=== PATIENT | female | born 1975 | race Caucasian/White ===

== ENCOUNTER 2019-12-16 09:16 | Outpatient (CLI) | payer OTHER, SELFPAY ==
--- NOTE | 2019-12-18 12:12 | WPDHOLTEREM ---
Holter/Event Monitor Holter/Event Monitor Date of procedure: 12/16/19 Procedure Type: 24 hour holter monitor Indications: Palpitations Conclusion: 1. 24 hour holter monitor on 12/16/19. 2. Underlying rhythm is sinus rhythm. HR range 42-182 bpm; average HR 79 bpm. 3. There are 5 premature supraventricular complexes. No supraventricular tachycardia. 4. There are 13 premature ventricular complexes. No ventricular tachycardia. 5. No sinoatrial or atrioventricular blocks. No significant pauses greater than 2 seconds. 6. Patient reports climbed stairs which demonstrate 107-130 bpm.
== END 2019-12-16 09:17 | disposition home or self-care (01) ==
PROVIDERS: PCP Physician Assistant; Visit Provider Physician Assistant
DX: R00.2 Palpitations (principal)
CPT/HCPCS: 93225; 93226

== ENCOUNTER → 2023-04-24 15:59 | Outpatient (CLI) | payer OTHER, BC, SELFPAY ==
--- NOTE | ~2023-04-24 | MM_ITS ---
EXAMINATION: MM screening harvey BI w joe HISTORY: Screening mammogram TECHNIQUE: Craniocaudal and mediolateral oblique 3-D tomosynthesis images were obtained and synthetic 2-D images were generated. CAD analysis was submitted and interpreted. COMPARISON: 05/20/2018 BREAST PARENCHYMAL COMPOSITION: There are scattered areas of fibroglandular density. FINDINGS: No suspicious mass, calcification, or architectural distortion are identified in either natan ast to suggest malignancy. There has been no suspicious interval change. IMPRESSION: 1. No mammographic evidence of malignancy. 2. Recommend routine screening mammography in one year. 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
== END ==
PROVIDERS: PCP Physician Assistant; Visit Provider Obstetrics & Gynecology
DX: Z12.31 Encounter for screening mammogram for malignant neoplasm of breast (principal)
CPT/HCPCS: 77063; 77067

== ENCOUNTER 2024-06-23 09:56 | Emergency (ER) | payer OTHER, BC, SELFPAY ==
[2024-06-23 09:58] VITALS: BP 133/94; PULSE 86; RESP 16; TEMP 36.6; O2SAT 100
[2024-06-23 10:36] LABS: Basophils Absolute Auto 0.1 K/mm3 (0.0-0.1); Basophils Percent Auto 0.5 % (0.2-1.2); Eosinophils Absolute Auto 0.2 K/mm3 (0-0.3); Eosinophils Percent Auto 1.2 % (0-4.4); Hematocrit 56.9 % (37.0-47.0); Hemoglobin 17.8 g/dL (12.0-15.0); Immature Granulocyte Absolute 0.04 K/mm3 (0.00-0.031); Immature Granulocyte Percent A 0.3 % (0-0.5); Lymphocytes Absolute Auto 1.51 K/mm3 (0.9-3.2); Lymphocytes Percent Auto 11.7 % (18.3-44.2); Mean Corpuscular HGB Conc 31.3 g/dl (32-36); Mean Corpuscular Volume 102.3 fl (80-100); Monocytes Absolute Auto 0.8 K/mm3 (0.1-0.6); Monocytes Percent Auto 6.4 % (2.6-8.5); Neutrophils Absolute Auto 10.3 K/mm3 (1.3-6.7); Neutrophils Percent Auto 79.9 % (45.5-73.1); Platelet Count Result 273 k/mm3 (150-375); Red Blood Count 5.56 M/mm3 (4.2-5.4); Red Cell Distribution Width 13.5 % (11.5-14.5); White Blood Count 12.9 K/mm3 (4.5-10.0)
--- OUTSIDE RECORDS SUMMARY | 2024-06-23 10:40 | XMS_ITS | Clinical Summary ---
Author Organization [facility] Address [facility] [place] [address] Care Team Providers Care Briquette Molder Name Role Phone Ganga Potter PA-C Primary Care Provider [phone] Allergies No known active allergies Medications albuterol sulfate HFA 108 (90 Base) MCG/ACT inhaler Inhale 2 puffs into the lungs every 6 (six) hours as needed for Shortness of breath. 6.7 g Active Social History Tobacco Use Types Packs/Day Years Used Date Smoking Tobacco: Never Assessed Comments Unknown Sex and Gender Information Value Date Recorded Sex Assigned at Not on file Legal Sex Female 5:41 PM CDT Gender Identity Not on file Sexual Orientation Not on file Last Filed Vital Signs Vital Sign Reading Time Taken Comments Blood Pressure 157/87 12/26/2020 4:25 PM CDT Pulse 63 12/26/2020 4:25 PM CDT Temperature 36.9 C (98.5 F) 12/26/2020 4:25 PM CDT Respiratory Rate 18 12/26/2020 4:25 PM CDT Oxygen Saturation 99% 12/26/2020 4:25 PM CDT Inhaled Oxygen Concentration - - Weight 91.2 kg (201 lb) 12/26/2020 4:25 PM CDT Height 162.6 cm (5' 4 ) 12/26/2020 4:25 PM CDT Body Mass Index 34.5 12/26/2020 4:25 PM CDT Plan of Treatment Health Maintenance Due Date Last Done Comments Cervical Cancer Screening Ramon baez Smear (Age 30 to 64) Every 3 Years 1976 Colorectal Cancer Screening Colonoscopy (10 Years) 1976 Annual Physical 07/10/1979 Hepatitis C 1994 DTaP, Tdap and Td Vaccines ( 1 - Tdap) 07/10/1995 Hepatitis B Vaccines (1 of 3 - 19+ 3-dose series) 07/10/1995 Cervical Cancer Screening Ramon baez with HPV Testing (Age 30 to 64) Every 5 Years 2006 Cervical Cancer Screening with HPV 2006 Mammogram Screening 2016 COVID-19 Vaccine ( - 2023-2 5 season) 2023 Meningococcal B Vaccine Aged Out No l onger eligible based on patient's age to complete this topic Meningococcal Vaccine Aged Out No yari catia eligible based on patient's age to complete this topic Pneumococcal Vaccine: Pediat rics (0 to 5 Years) and At-Risk Patients (6 to 49 Years) Aged Out No longer eligible b ased on patient's age to complete this topic RSV Immunizations Under 20 Months Aged Out No longer eligible based on patient's age to complete this topic Insurance Care Teams Briquette Molder Relationship Specialty Start Date End Date Ganga Potter PA-C [address] [facility] [address] [place] [address] PCP - General PHYSICIAN STATION EXAMINER 12/26/20
[2024-06-23 10:43] LABS: Alanine Aminotransferase 29 U/L (6-35); Albumin Level 5.6 g/dL (3.5-5.1); Alkaline Phosphatase 89 U/L (38-126); Anion Gap 18 mmol/L (4-12); Aspartate Amino Transferase 22 U/L (14-36); Bilirubin,Total 0.6 mg/dL (0.2-1.3); Blood Urea Nitrogen 17 mg/dL (7-17); Carbon Dioxide 17 mmol/L (22-30); Chloride 104 mmol/L (98-107); Estimated CRCL calculation 85 ml/min; Estimated Glomerular Filt Rate > 60; Glucose 131 mg/dL (65-110); Lipase 98 U/L (23-300); Potassium 4.2 mmol/L (3.4-5.0); Sodium 139 mmol/L (137-145)
[2024-06-23 10:46] VITALS: O2SAT 99
--- NOTE | 2024-06-23 10:49 | PC.NURSE ---
pt unable to urinate at this time due to being very dehydrated
--- NOTE | 2024-06-23 11:08 | PC.NURSE ---
patient was asked to provide a urine sample, she states that she can't pee right now because she's dehydrated. patient denies a catheter because she has sensitive skin and is very careful about what happens downstairs
[2024-06-23] MEDS: LACTATED RINGERS 1,000 ML 999 ML IV CONT ×2 (11:53→13:08)
--- NOTE | 2024-06-23 12:04 | PC.NURSE ---
Lab called to add on ordered magnesium.
[2024-06-23 12:30] LABS: Magnesium 2.1 mg/dL (1.6-2.3)
--- NOTE | 2024-06-23 12:36 | ED_ITS ---
HPI - Nausea/Vomiting/Diarrhea General Chief complaint: Nausea/Vomiting/Diarrhea Stated complaint: severe dehydration Time Seen by Provider: 06/23/24 11:39 History of Present Illness HPI Narrative: 48-year-old female presents emergency department for diarrhea that started yesterday. Patient states she has had several bouts of watery diarrhea since last night. She had 1 episode of vomiting upon arrival to the ED. She is reporting mild epigastric discomfort after vomiting but otherwise no abdominal pain. Denies fever, dysuria or hematuria, recent travel or antibiotic use. No recent healthcare exposure. Patient states she feels very dehydrated and wants IV fluids. Related Data Home Medications ?Medication ?Instructions ?Recorded ?Confirmed ?Last Taken ?Type apple cider vinegar 500 mg tablet mg PO 12/08/19 03/24/23 Unknown History biotin 5,000 mcg disintegrating 10,000 mcg PO DAILY 12/08/19 03/24/23 Unknown History tablet diphenhydramine HCl 25 mg tablet 25 mg PO TID PRN 12/08/19 03/24/23 Unknown History (Benadryl Allergy) elderberry fruit 200 mg capsule mg PO 12/08/19 03/24/23 Unknown History krill idn-udnro-3-dha-epa 300 cap PO 12/08/19 03/24/23 Unknown History mg-90 mg (27 mg-45 mg) capsule loratadine 10 mg tablet (Claritin) 10 mg PO DAILY 12/08/19 03/24/23 Unknown History lysine 1,000 mg tablet 1,000 mg PO DAILY 12/08/19 03/24/23 Unknown History Allergies Allergy/AdvReac Type Severity Reaction Status Date / Time No Known Allergies Allergy Verified 06/23/24 10:03 Review of Systems 2 Review of Systems: All systems reviewed & are unremarkable except as noted in HPI and below PMFSH Surgical History Surgical History History of cervical biopsy Family History Family History Father No problems noted. Mother Hypertension Social History Social History Smoking status: Never smoker Lack of Transportation: No Lack of Food: Never True Current Housing: I Have Housing Concerned About Future Housing: No Difficulty Paying Gas/Electric Bills: No Difficulty Paying for Meds: No Currently Unemployed: No Education: Associate Degree Difficulty w/ Childcare or Family Care: No Exam 2 Narrative: GENERAL: Well-appearing, well-nourished, and in no acute distress. HEAD: Normocephalic, atraumatic. EYES: EOMI. ENT: Nares clear, no rhinorrhea or epistaxis. Mucous membranes moist. NECK: Supple. CHEST: Clear to auscultation. No respiratory distress. HEART: Regular rate and rhythm. No murmur heard. Normal peripheral pulses. ABDOMEN: Soft, nontender, nondistended, normal active bowel sounds. No rebound, guarding or rigidity. No CVA tenderness EXTREMITIES: Normal range of motion. No edema. SKIN: Warm, dry, no rash. NEURO: No focal deficits. Alert and oriented x3 Course Vital Signs Vital signs: Vital Signs Temperature 97.8 F 06/23/24 09:58 Pulse Rate 86 06/23/24 09:58 Respiratory Rate 16 06/23/24 09:58 Blood Pressure 133/94 H 06/23/24 09:58 Pulse Oximetry 100 06/23/24 09:58 Temperature 97.8 F 06/23/24 09:58 Pulse Rate 86 06/23/24 09:58 Respiratory Rate 16 06/23/24 09:58 Blood Pressure 133/94 H 06/23/24 09:58 Pulse Oximetry 99 06/23/24 10:46 MDM - Nausea/Vomiting/Diarrhea MDM Narrative Medical decision making narrative: 48-year-old female presents to the emergency department for diarrhea that started yesterday evening 1 episode of vomiting. Vitals are stable. Patient is afebrile and nontoxic appearing. Abdomen is soft and nontender. Lab work shows leukocytosis of 12.9 and hemoglobin is 17.8 which is likely secondary to dehydration. Chemistries also consistent with dehydration with a bicarb of 17 and anion gap of 18. Lipase is within normal limits. Magnesium within normal limits. is negative. UA without infection or ketones. Patient updated on results. She received 2 L of fluids with significant improvement. She politely declined Pepcid and antiemetics. She is tolerating p.o. intake. She did have a couple episodes of diarrhea in the ED, therefore stool cultures and C diff obtained. Discussed supportive care with increase oral intake and follow-up with PCP. I offered to send antiemetics to the pharmacy however patient declined. Discussed strict ED return precautions. She and her are agreeable to plan verbalized understanding. Discharged in stable condition. Lab Data 06/23/24 10:27 06/23/24 10:27 Labs: Lab Results 06/23/24 06/23/24 06/23/24 Range/Units 10:27 13:17 13:58 WBC 12.9 H (4.5-10.0) K/mm3 RBC 5.56 H (4.2-5.4) M/mm3 Hgb 17.8 H (12.0-15.0) g/dL Hct 56.9 H (37.0-47.0) % MCV 102.3 H (80-100) fl MCH 32.0 (26-34) pg MCHC 31.3 L (32-36) g/dl RDW 13.5 (11.5-14.5) % Plt Count 273 (150-375) k/mm3 MPV 13.0 H (7.4-10.4) fl Immature Gran % (Auto) 0.3 (0-0.5) % Neut % (Auto) 79.9 H (45.5-73.1) % Lymph % (Auto) 11.7 L (18.3-44.2) % [place] % (Auto) 6.4 (2.6-8.5) % Eos % (Auto) 1.2 (0-4.4) % Baso % (Auto) 0.5 (0.2-1.2) % Lymph # (Auto) 1.51 (0.9-3.2) K/mm3 [place] # (Auto) 0.8 H (0.1-0.6) K/mm3 Eos # (Auto) 0.2 (0-0.3) K/mm3 Baso # (Auto) 0.1 (0.0-0.1) K/mm3 Abs Immat Gran (auto) 0.04 H (0.00-0.031) K/mm3 Absolute Neuts (auto) 10.3 H (1.3-6.7) K/mm3 Absolute Nucleated RBC 0.000 (0.0-0.012) K/mm3 Nucleated RBC % 0.0 (0.0-0.2) % % Immature Plt Fraction 13.0 H (0.9-11.2) % Sodium 139 (137-145) mmol/L Potassium 4.2 (3.4-5.0) mmol/L Chloride 104 (98-107) mmol/L Carbon Dioxide 17 L (22-30) mmol/L Anion Gap 18 H (4-12) mmol/L BUN 17 (7-17) mg/dL Creatinine 0.78 (0.7-1.0) mg/dL Estim Creat Clear Calc 85 ml/min Estimated GFR > 60 (59 - ) Glucose 131 H (65-110) mg/dL Calcium 10.0 (8.4-10.2) mg/dL Magnesium 2.1 (1.6-2.3) mg/dL Total Bilirubin 0.6 (0.2-1.3) mg/dL AST 22 (14-36) U/L ALT 29 (6-35) U/L Alkaline Phosphatase 89 (38-126) U/L Total Protein 10.0 H (6.3-8.2) g/dL Albumin 5.6 H (3.5-5.1) g/dL Lipase 98 (23-300) U/L Urine Color Yellow (Yellow) Urine Appearance Clear (Clear) Urine pH 5.5 (5.0-9.0) Ur Specific [place] 1.008 (1.001-1.035) Urine Protein 2+ H (Negative) mg/dL Urine Glucose (UA) Negative (Negative) mg/dL Urine Ketones Negative (Negative) mg/dL Ur Blood (Man) Negative (Negative) Urine Nitrate Negative (Negative) Urine Bilirubin Negative (Negative) Urine Urobilinogen 0.2 (<2.0) mg/dL Add Ur Microanalysis Reviewed Leukocyte Esterase Rfl Negative (Negative) SITA/UL Urine RBC 0-2 (0-2) /hpf Urine WBC 0-5 (0-3) /hpf Ur Squamous Epith Cells Occasional (Few) /hpf Urine Bacteria None seen /hpf Urine Casts 11-20 Hyaline Casts Present (None) /lpf POC Urine HCG, Qual Negative (Negative) C. difficile (PCR) 06/23/24 Range/Units 14:14 WBC (4.5-10.0) K/mm3 RBC (4.2-5.4) M/mm3 Hgb (12.0-15.0) g/dL Hct (37.0-47.0) % MCV (80-100) fl MCH (26-34) pg MCHC (32-36) g/dl RDW (11.5-14.5) % Plt Count (150-375) k/mm3 MPV (7.4-10.4) fl Immature Gran % (Auto) (0-0.5) % Neut % (Auto) (45.5-73.1) % Lymph % (Auto) (18.3-44.2) % Hodgeman % (Auto) (2.6-8.5) % Eos % (Auto) (0-4.4) % Baso % (Auto) (0.2-1.2) % Lymph # (Auto) (0.9-3.2) K/mm3 [place] # (Auto) (0.1-0.6) K/mm3 Eos # (Auto) (0-0.3) K/mm3 Baso # (Auto) (0.0-0.1) K/mm3 Abs Immat Gran (auto) (0.00-0.031) K/mm3 Absolute Neuts (auto) (1.3-6.7) K/mm3 Absolute Nucleated RBC (0.0-0.012) K/mm3 Nucleated RBC % (0.0-0.2) % % Immature Plt Fraction (0.9-11.2) % Sodium (137-145) mmol/L Potassium (3.4-5.0) mmol/L Chloride (98-107) mmol/L Carbon Dioxide (22-30) mmol/L Anion Gap (4-12) mmol/L BUN (7-17) mg/dL Creatinine (0.7-1.0) mg/dL Estim Creat Clear Calc ml/min Estimated GFR (59 - ) Glucose (65-110) mg/dL Calcium (8.4-10.2) mg/dL Magnesium (1.6-2.3) mg/dL Total Bilirubin (0.2-1.3) mg/dL AST (14-36) U/L ALT (6-35) U/L Alkaline Phosphatase (38-126) U/L Total Protein (6.3-8.2) g/dL Albumin (3.5-5.1) g/dL Lipase (23-300) U/L Urine Color (Yellow) Urine Appearance (Clear) Urine pH (5.0-9.0) Ur Specific [place] (1.001-1.035) Urine Protein (Negative) mg/dL Urine Glucose (UA) (Negative) mg/dL Urine Ketones (Negative) mg/dL Ur Blood (Man) (Negative) Urine Nitrate (Negative) Urine Bilirubin (Negative) Urine Urobilinogen (<2.0) mg/dL Add Ur Microanalysis Leukocyte Esterase Rfl (Negative) SITA/UL Urine RBC (0-2) /hpf Urine WBC (0-3) /hpf Ur Squamous Epith Cells (Few) /hpf Urine Bacteria /hpf Urine Casts Hyaline Casts (None) /lpf POC Urine HCG, Qual (Negative) C. difficile (PCR) Pending Discharge Plan Discharge Clinical Impression: Gastroenteritis, Dehydration Patient Disposition: Home Condition: Stable Instructions: Antibiotic Form, Dehydration (ED), Gastroenteritis (ED) Additional Instructions: Please drink plenty fluids including water, Gatorade and Pedialyte. A bland diet consisting of bananas, rice, applesauce and toast until you can slowly advance to your regular diet. Return to the emergency department if you develop focal abdominal pain, your unable to tolerate food or fluids, developed a fever of 100.4 or greater, or other concerning symptoms. Follow-up with her PCP. Patient Language: Malagasy Prescriptions: No Action lorazepam 0.5 mg tablet 0.5 mg PO DAILY PRN (Reason: anxiety) Qty: 20 0RF diphenhydramine HCl [Benadryl Allergy] 25 mg tablet 25 mg PO TID PRN loratadine [Claritin] 10 mg tablet 10 mg PO DAILY elderberry fruit 200 mg capsule PO lysine 1,000 mg tablet 1,000 mg PO DAILY krill clx-oovst-3-dha-epa 300-90 (27-45) mg capsule PO biotin 5,000 mcg tablet,disintegrating 10,000 mcg PO DAILY apple cider vinegar 500 mg tablet PO escitalopram oxalate 10 mg tablet 10 mg PO DAILY Qty: 30 1RF Follow-up/Referrals: Fish Cunha MD [Primary Care Provider] -
--- OUTSIDE RECORDS SUMMARY | 2024-06-23 13:03 | XMS_ITS | Clinical Summary ---
Author Organization [facility] Address [facility] [place] [address] Care Team Providers Care Web Engineer Name Role Phone Ganga Potter PA-C Primary Care Provider [phone] Allergies No known active allergies Medications albuterol [...] to complete this topic Insurance Care Teams Web Engineer Relationship Specialty Start Date End Date Ganga Potter PA-C [address] [facility] [address] [place] [address] PCP - General PHYSICIAN STRAIGHT CUTTER MACHINE 12/26/20
[2024-06-23 13:30] LABS: Add Urine Microscopic? YES; Appearance Urine Clear (Clear); Bacteria Urine None Seen /hpf; Bilirubin Urine Negative (Negative); Blood Urine Negative (Negative); Color Urine Yellow (Yellow); Glucose Urine UA Negative (Negative); Hyaline Casts Urine Present /lpf; Ketones Urine Negative (Negative); Leukocyte Esterase Ur Negative LEU/UL (Negative); Need Manual Microscopic Reviewed; Nitrate Urine Negative (Negative); Protein Urine 2+ mg/dL (Negative); RBC Urine 0-2 /hpf (0-2); Specific Grav Ur 1.008 (1.001-1.035); Squamous Epithelial Cell Urine Occasional /hpf (Few); Urobilinogen Urine 0.2 mg/dL (<2.0); WBC Urine 0-5 /hpf (0-3); pH Urine 5.5 (5.0-9.0)
[2024-06-23 14:00] LABS: BEDSIDEPREGUCG Negative (Negative)
[2024-06-23 15:12] LABS: Toxigenic C. Diff NEGATIVE (NEGATIVE)
== END 2024-06-23 14:37 | disposition home or self-care (01) ==
PROVIDERS: Emergency Medicine; Emergency Provider Physician Assistant; PCP Family Medicine
DX: K52.9 Noninfective gastroenteritis and colitis, unspecified (principal); E86.0 Dehydration
CPT/HCPCS: 36415; 80053; 81001; 81025; 83690; 83735; 85025; 85055; 87045; 87427; 87449; 87493; 96360; 96361; 99283; J7120

== ENCOUNTER 2024-08-21 16:37 | Emergency (ER) | payer OTHER, BC, SELFPAY ==
[2024-08-21 16:51] VITALS: BP 148/82; PULSE 56; RESP 18; TEMP 36.4; O2SAT 98
--- NOTE | 2024-08-21 16:51 | ED.SKABFB ---
HPI - Skin/Abscess/Foreign Bdy General Chief complaint: Skin/Abscess/Foreign Body Stated complaint: Spider bite Time Seen by Provider: 08/21/24 16:51 Source: patient Mode of arrival: ambulatory Limitations: no limitations History of Present Illness HPI narrative: 49 yo F presents with spider bite to R side of back. States she was bit around 4am in shower. No pain. C/o itching. Worried for brown recluse. all systems reviewed and negative except as noted above. Related Data Home Medications ?Medication ?Instructions ?Recorded ?Confirmed ?Last Taken ?Type apple cider vinegar 500 mg tablet mg PO 12/08/19 07/16/24 Unknown History biotin 5,000 mcg disintegrating 10,000 mcg PO DAILY 12/08/19 07/16/24 Unknown History tablet diphenhydramine HCl 25 mg tablet 25 mg PO TID PRN 12/08/19 07/16/24 Unknown History (Benadryl Allergy) elderberry fruit 200 mg capsule mg PO 12/08/19 07/16/24 Unknown History krill uhc-tydop-8-dha-epa 300 cap PO 12/08/19 07/16/24 Unknown History mg-90 mg (27 mg-45 mg) capsule loratadine 10 mg tablet (Claritin) 10 mg PO DAILY 12/08/19 07/16/24 Unknown History lysine 1,000 mg tablet 1,000 mg PO DAILY 12/08/19 07/16/24 Unknown History semaglutide 2.5 mg/mL subcutaneous 40 mg subcut 07/16/24 07/16/24 Unknown History solution Allergies Allergy/AdvReac Type Severity Reaction Status Date / Time No Known Allergies Allergy Verified 08/21/24 16:46 Review of Systems Review of Systems: CONSTITUTIONAL: Denies fever, chills, or sweats. EYES: Denies visual changes, redness, or discharge. ENT: Denies rhinorrhea, congestion, sore throat, or otalgia. CARDIOVASCULAR: Denies chest pain, palpitations, or edema. RESPIRATORY: Denies cough or dyspnea. GASTROINTESTINAL: Denies abdominal pain, nausea, vomiting, or diarrhea. GENITOURINARY: Denies dysuria or hematuria. SKIN: Denies rash or itching. reports spider bite to right side of back MUSCULOSKELETAL: Denies back pain, joint pain, or myalgia. NEUROLOGIC: Denies headache, numbness, or weakness. PSYCHIATRIC: Denies anxiety or depression. All other systems reviewed are negative, except as documented in HPI. [facility] Past Medical History Medical History (Updated 08/21/24 @ 17:01 by Joy Evans NP) Routine medical exam Screening for breast cancer Surgical History Surgical History History of cervical biopsy Family History Family History Father No problems noted. Mother Hypertension Social History Social History Smoking status: Never smoker Lack of Transportation: No Lack of Food: Never True Current Housing: I Have Housing Concerned About Future Housing: No Difficulty Paying Gas/Electric Bills: No Difficulty Paying for Meds: No Currently Unemployed: No Education: Associate Degree Difficulty w/ Childcare or Family Care: No Comments At time of signature, agree with nursing past medical, surgical, social and family history. There is no relevant family history pertinent to the presenting complaint. Exam Narrative: GENERAL: This is a well-nourished, well-developed patient, in no apparent distress. HEAD: normocephalic, atraumatic. EYES: PERRL. Sclera clear/white. Vision is grossly intact. EARS: External ears normal NOSE: External nose normal NECK: Neck supple, non-tender without lymphadenopathy, masses or thyromegaly. CARDIOVASCULAR: Regular rate and rhythm without murmurs, gallops, or rubs. RESPIRATORY: Clear to auscultation. Breath sounds equal bilaterally. No wheezes, rales, or rhonchi. SKIN: warm, Dry, intact with no suspicious lesions or rash, good texture and turgor. pencil tip size papule to R mid back without erythema, warmth or tenderness NEURO: awake, alert, and oriented to person, place and time. There were no obvious focal neurologic abnormalities. EXTREMITIES: No joint tenderness, effusion, or edema noted. Course Course Level of Care: Express Care Visit Vital Signs Vital signs: Vital Signs Temperature 36.4 C L 08/21/24 16:51 Pulse Rate 56 L 08/21/24 16:51 Respiratory Rate 18 08/21/24 16:51 Blood Pressure 148/82 H 06/13/25 16:51 Pulse Oximetry 98 08/21/24 16:51 Oxygen Delivery Room Air 08/21/24 16:51 Temperature 36.4 C L 08/21/24 16:51 Pulse Rate 56 L 08/21/24 16:51 Respiratory Rate 18 08/21/24 16:51 Blood Pressure 148/82 H 08/21/24 16:51 Pulse Oximetry 98 08/21/24 16:51 Oxygen Delivery Room Air 08/21/24 16:51 reviewed MDM - Skin/Abscess/Foreign Bdy MDM Narrative Medical decision making narrative: very small insect bite to right side of mid back. Will treat with triamcinolone. Recommend daily antihistamine such as Claritin or Zyrtec. Will see her primary care physician for any worsening of symptoms. Discharge Plan Discharge Clinical Impression: Insect bite of back Qualifiers: Encounter type: initial encounter Patient Disposition: Home Condition: Stable Instructions: Insect Bite or Sting (ED) Additional Instructions: Apply steroid cream 2 to 3 times a day sparingly to affected area. Take an antihistamine daily such as claritin or zyrtec. Patient Language: Uzbek Prescriptions: New triamcinolone acetonide 0.1 % cream 1 applic topical BID PRN (Reason: insect bite) Qty: 15 0RF No Action diphenhydramine HCl [Benadryl Allergy] 25 mg tablet 25 mg PO TID PRN loratadine [Claritin] 10 mg tablet 10 mg PO DAILY elderberry fruit 200 mg capsule PO lysine 1,000 mg tablet 1,000 mg PO DAILY krill ckz-bunll-7-dha-epa 300-90 (27-45) mg capsule PO biotin 5,000 mcg tablet,disintegrating 10,000 mcg PO DAILY apple cider vinegar 500 mg tablet PO semaglutide 2.5 mg/mL solution 40 mg subcut Patient Comments: 1wk Zepbound 2.5 mg/0.5 mL pen injector 2.5 mg subcut WEEKLY Qty: 2 0RF Rx Instructions: for 4 weeks progesterone micronized 100 mg capsule 100 mg PO QHS Qty: 90 0RF escitalopram oxalate 10 mg tablet 10 mg PO DAILY Qty: 90 1RF Follow-up/Referrals: Fish Cunha MD [Primary Care Provider] - Time of Disposition: 17:02
== END 2024-08-21 17:03 | disposition home or self-care (01) ==
PROVIDERS: Emergency Provider Nurse Practitioner Family; PCP Family Medicine
DX: S20.461A Insect bite (nonvenomous) of right back wall of thorax, initial encounter (principal); W57.XXXA Bitten or stung by nonvenomous insect and other nonvenomous arthropods, initial encounter
CPT/HCPCS: 99213; G0463